=== PATIENT | female | born 1985 | race American Indian/Alaskan Native ===

== ENCOUNTER 2018-01-13 17:05 | Observation (INO) | payer MEDICAID ==
--- NOTE | 2018-01-13 18:43 | C.PDOC ---
History Of Present Illness 32 yr old female w/ hx of HTN p/w CP, vertigo and palpitations. Pt ntoes that she was seen by her PMD Dr. Wagner yesterday but her intermittent vertigo persists x3d. Vertigo began sunday, associated with palpitations and chest pain. No orthopnea, pnd or leg swelling. Chest pain is described more as a palpitation Non throbbing, without radiation. No radiation to the back. Pt notes she has been taking her meclizine at home given by PMD without much relief. No fever, chills or night sweats. No trauma or falls. Pt also notes mild PENNY, not worst of life or sudden in onset. No other complaints. Time Seen by Provider: 01/13/18 18:39 Chief Complaint (Nursing): Chest Pain Past Medical History Vital Signs: Last Vital Signs Temp 98.2 F 01/13/18 17:30 Pulse 90 01/13/18 17:30 Resp 18 01/13/18 17:30 BP 124/73 01/13/18 17:30 Pulse Ox 97 01/13/18 17:30 - Medical History PMH: HTN, Sleep Apnea Family History: States: Unknown Family Hx - Social History Hx Alcohol Use: No Hx Substance Use: No - Immunization History Hx Tetanus Toxoid Vaccination: Yes Hx Influenza Vaccination: Yes Hx Pneumococcal Vaccination: No Review Of Systems Constitutional: Negative for: Fever, Chills, Weakness, Malaise Eyes: Negative for: Pain, Eyelid Inflammation ENT: Negative for: Ear Pain, Ear Discharge, Nose Congestion, Mouth Pain Cardiovascular: Positive for: Chest Pain. Negative for: Palpitations, Orthopnea, Edema, Light Headedness Respiratory: Negative for: Cough, Shortness of Breath, SOB with Excertion, Pleuritic Pain, Wheezing Gastrointestinal: Negative for: Nausea, Vomiting, Abdominal Pain, Constipation, Melena, Hematochezia Genitourinary: Negative for: Dysuria, Hematuria, Pelvic Pain Musculoskeletal: Negative for: Neck Pain, Shoulder Pain, Arm Pain, Back Pain, Hand Pain Skin: Negative for: Rash, Lesions Neurological: Positive for: Headache (mild, not suddent onset. not worst of life ), Dizziness. Negative for: Weakness, Numbness, Confusion, Seizures Psych: Negative for: Anxiety, Depression Physical Exam - Physical Exam Appears: Well, Non-toxic, No Acute Distress Skin: Normal Color, Warm Head: Atraumatic, Normacephalic Eye(s): bilateral: Normal Inspection, PERRL, EOMI Nose: Normal Oral Mucosa: Moist Tongue: Normal Appearing Teeth: Normal Dentition Gingiva: Normal Appearing Neck: Normal, Normal ROM, No Midline Cervical Tenderness, Supple (no meningeal signs) Chest: Symmetrical Cardiovascular: Rhythm Regular Respiratory: Normal Breath Sounds, No Accessory Muscle Use, No Rales Gastrointestinal/Abdominal: Normal Exam, Soft, No Tenderness, No Mass, No Distention, No Guarding Back: Normal Inspection, No CVA Tenderness Neurological/Psych: Oriented x3, Normal Speech, Normal Cognition, Normal Cranial Nerves, No Cerebellar Signs, Normal Motor Gait: Steady Extremity: Right: No Drift, Left: No Drift, Upper: No Drift, Lower: No Drift ED Course And Treatment - Laboratory Results Result Diagrams: 01/13/18 18:51 01/13/18 19:08 O2 Sat by Pulse Oximetry: 97 Medical Decision Making Medical Decision Makin yr old female w/ hx of HTN p/w CP, vertigo and palpitations. Also mild PENNY, not worst of life, No FND, no meningeal signs. Vertigo is intermittent, BPPV like. EKG unremarkable: 76, NSR, no stemi Pending imaging and labs. 2040 labs unremarkable CTH unremarkable CXR unremarkable appreciate consult w/ Dr. Wagner: accepts to his service: tele obs for palpitations and vertigo pt in NAD and agreeable to plan Disposition - Disposition Disposition: HOSPITALIZED Disposition Time: 21:11 Condition: GOOD - Clinical Impression Clinical Impression: Palpitations, Near syncope
[2018-01-13] MEDS ORDERED: Sodium Chloride 0.9% 1,000 ML IV ONE (18:52)
[2018-01-13] MEDS ORDERED: Sodium Chloride 0.9% 1,000 ML ONE (19:00)
[2018-01-13 19:05] LABS: BASO % 0.3 % (0.0-2.0); EOS # 0.1 K/uL (0.0-0.7); EOS % 1.7 % (0.0-4.0); HEMOGLOBIN 10.4 g/dL (11.0-16.0); LYMPH # 2.6 K/uL (1.0-4.3); LYMPH % 30.7 % (20.0-40.0); MEAN CELL VOLUME 81.3 fL (81.0-99.0); MEAN CORPUSCULAR HEMOGLOBIN 25.7 pg (27.0-31.0); MEAN CORPUSCULAR HGB CONC 31.6 g/dL (33.0-37.0); MEAN PLATELET VOLUME 9.3 fL (7.2-11.7); MONO # 0.9 K/uL (0.0-0.8); MONO % 11.2 % (0.0-10.0); NEUT # 4.8 K/uL (1.8-7.0); NEUT % 56.1 % (50.0-75.0); NRBC % 0.2 % (0.0-2.0); RBC 4.03 Mil/uL (3.80-5.20); RED CELL DISTRIBUTION WIDTH 18.1 % (11.5-14.5); WHITE BLOOD COUNT 8.5 K/uL (4.8-10.8)
[2018-01-13 19:21] LABS: ALB/GLOB RATIO 1.2 (1.0-2.1); ALBUMIN 4.4 g/dL (3.5-5.0); ALT/SGPT 21 U/L (9-52); AST/SGOT 26 U/L (14-36); BLOOD UREA NITROGEN 14 mg/dL (7-17); CALCIUM 9.7 mg/dl (8.6-10.4); GFR NON-AFRICAN AMERICAN > 60
[2018-01-14 00:35] LABS: SQUAMOUS EPITHIAL 12 /hpf (0-5); URINE BACTERIA RARE (<OCC); URINE BILIRUBIN NEGATIVE (NEGATIVE); URINE BLOOD NEGATIVE (NEGATIVE); URINE CLARITY Hazy (Clear); URINE COLOR Yellow (YELLOW); URINE GLUCOSE (UA) NORMAL (Normal); URINE LEUKOCYTE ESTERASE NEG Leu/uL (Negative); URINE PROTEIN NEGATIVE (NEGATIVE); URINE UROBILINOGEN NORMAL mg/dL (0.2-1.0)
--- NOTE | 2018-01-14 07:21 | CP.PCM.CON ---
History of Present Illness - History of Present Illness History of Present Illness: consultation dictated chronic dizzyness BRAINSTEM MIGRAINE POSTURAL HYPOTENSION ? TERRIE - NON COMPLIANT MRI/CAROTID /EEG LOOSE WEIGHT ECOTRIN NEEDS REPEAT PSG TO CORRECT HER CPAP Past Patient History - Past Social History Smoking Status: Never Smoked - CARDIAC Hx Hypertension: Yes - PULMONARY Hx Sleep Apnea: Yes - PSYCHIATRIC Hx Substance Use: No - SURGICAL HISTORY Hx Surgeries: Yes Hx Dilation and Curettage: Yes - ANESTHESIA Hx Anesthesia: Yes Hx Anesthesia Reactions: No Hx Malignant Hyperthermia: No Meds Allergies/Adverse Reactions: Allergies Allergy/AdvReac Type Severity Reaction Status Date / Time shellfish derived Allergy Verified 01/13/18 17:35 - Medications Medications: Current Medications Aspirin (Ecotrin) 81 mg PO DAILY BERNABE Ferrous Sulfate (Feosol) 325 mg PO DAILY BERNABE Losartan Potassium (Cozaar) 25 mg PO DAILY BERNABE Multivitamins (Hexavitamin) 1 tab PO DAILY BERNABE Results - Vital Signs Recent Vital Signs: Last Vital Signs Temp 98.2 F 01/13/18 17:30 Pulse 77 01/14/18 04:04 Resp 18 01/13/18 17:30 BP 127/69 01/13/18 22:07 Pulse Ox 100 01/13/18 22:07 - Labs Result Diagrams: 01/13/18 18:51 01/13/18 19:08 Labs: Laboratory Results - last 24 hr 01/13/18 01/13/18 01/13/18 18:51 19:08 23:52 WBC 8.5 RBC 4.03 Hgb 10.4 L Hct 32.8 L MCV 81.3 MCH 25.7 L MCHC 31.6 L RDW 18.1 H Plt Count 313 MPV 9.3 Neut % (Auto) 56.1 Lymph % (Auto) 30.7 [place] % (Auto) 11.2 H Eos % (Auto) 1.7 Baso % (Auto) 0.3 Neut # (Auto) 4.8 Lymph # (Auto) 2.6 [place] # (Auto) 0.9 H Eos # (Auto) 0.1 Baso # (Auto) 0.0 Sodium 138 Potassium 3.8 Chloride 98 Carbon Dioxide 26 Anion Gap 18 BUN 14 Creatinine 0.8 Est GFR ( Amer) > 60 Est GFR (Non-Af Amer) > 60 Random Glucose 101 Calcium 9.7 Magnesium 1.8 Total Bilirubin 0.4 AST 26 ALT 21 Alkaline Phosphatase 58 Troponin I < 0.0120 Total Protein 8.0 Albumin 4.4 Globulin 3.6 Albumin/Globulin Ratio 1.2 TSH 3rd Generation 1.88 Urine Color Urine Clarity Urine pH Ur Specific [place] Urine Protein Urine Glucose (UA) Urine Ketones Urine Blood Urine Nitrate Urine Bilirubin Urine Urobilinogen Ur Leukocyte Esterase Urine WBC (Auto) Urine RBC (Auto) Ur Squamous Epith Cells Urine Bacteria Urine HCG, Qual 01/14/18 01/14/18 00:19 00:30 WBC RBC Hgb Hct MCV MCH MCHC RDW Plt Count MPV Neut % (Auto) Lymph % (Auto) [place] % (Auto) Eos % (Auto) Baso % (Auto) Neut # (Auto) Lymph # (Auto) [place] # (Auto) Eos # (Auto) Baso # (Auto) Sodium Potassium Chloride Carbon Dioxide Anion Gap BUN Creatinine Est GFR ( Amer) Est GFR (Non-Af Amer) Random Glucose Calcium Magnesium Total Bilirubin AST ALT Alkaline Phosphatase Troponin I Total Protein Albumin Globulin Albumin/Globulin Ratio TSH 3rd Generation Urine Color Yellow Urine Clarity Hazy Urine pH 5.0 Ur Specific [place] 1.028 Urine Protein Negative Urine Glucose (UA) Normal Urine Ketones Negative Urine Blood Negative Urine Nitrate Negative Urine Bilirubin Negative Urine Urobilinogen Normal Ur Leukocyte Esterase Neg Urine WBC (Auto) 3 Urine RBC (Auto) 1 Ur Squamous Epith Cells 12 H Urine Bacteria Rare Urine HCG, Qual Negative
--- NOTE | 2018-01-14 08:21 | CP.PCM.CON ---
<Saumya Prabhakar - Last Filed: 01/14/18 16:51> History of Present Illness - History of Present Illness History of Present Illness: Cardiology Consult Note This is a 32 year old female with past medical history of hypertension, impaired glucose tolerance, obesity, obstructive sleep apnea and asthma who was referred to our service by Dr. Wagner, for syncope. Patient reports she has had intermittent dizziness for the past several months, not associated with movement of her head, positional changes, or medications. Most recently, 3 days prior to admission, she experienced dizziness, associated with chest tightness/ pressure. She saw her PMD the following day and he instructed her to come to the ED. Patient reports she has experienced extreme fatigue and migraines for the past several months. She has not been compliant with her CPAP machine, due to the mask being broken. Her migraines are associated with photophobia, denied nausea, vomiting. She currently admits to dizziness and fatigue. ROS unremarkable, unless otherwise noted. PMHx: As noted above PSHx: bilateral oophorectomy 2/2 ectopic pregnancies Meds: Cozaar All: shellfish ; tolerates iodine (must be premedicated) SHx: Denied tobacco, alcohol, or illicit drug use FHx: Denied any heart disease, cardiac arrests, or sudden deaths Review of Systems - Constitutional Constitutional: absent: Chills, Fever - EENT Eyes: absent: Blurred Vision, Pain, Photophobia Ears: Disequilibrium, Dizziness Nose/Mouth/Throat: absent: Nasal Congestion, Nasal Discharge, Dysphagia - Cardiovascular Cardiovascular: Chest Pain, Lightheadedness. absent: Chest Pain at Rest, Chest Pain with Activity, Diaphoresis, Dyspnea, Edema, Leg Edema, Orthopnea - Respiratory Respiratory: absent: Cough, Dyspnea on Exertion, Chest Congestion - Gastrointestinal Gastrointestinal: absent: Abdominal Pain, Constipation, Diarrhea, Nausea, Vomiting - Genitourinary Genitourinary: absent: Change in Urinary Stream, Dysuria, Hematuria - Musculoskeletal Musculoskeletal: absent: Abnormal Gait, Arthralgias, Back Pain - Integumentary Integumentary: absent: Bleeding Lesions, Change in Hair, Dry Skin - Neurological Neurological: Disequilibrium, Dizziness. absent: Abnormal Gait, Abnormal Hearing, Confusion, Focal Weakness, Loss of Vision, Syncope, Vertigo, Weakness - Psychiatric Psychiatric: absent: Anxiety, Depression, Suicidal Ideation - Endocrine Endocrine: absent: Change in Body Appearance, Polydipsia, Polyphagia, Polyuria - Hematologic/Lymphatic Hematologic: absent: Easy Bleeding, Easy Bruising, Lymphadenopathy Past Patient History - Past Social History Smoking Status: Never Smoked - CARDIAC Hx Hypertension: Yes - PULMONARY Hx Sleep Apnea: Yes - PSYCHIATRIC Hx Substance Use: No - SURGICAL HISTORY Hx Surgeries: Yes Hx Dilation and Curettage: Yes - ANESTHESIA Hx Anesthesia: Yes Hx Anesthesia Reactions: No Hx Malignant Hyperthermia: No Meds Allergies/Adverse Reactions: Allergies Allergy/AdvReac Type Severity Reaction Status Date / Time shellfish derived Allergy Verified 01/13/18 17:35 - Medications Medications: Current Medications Aspirin (Ecotrin) 81 mg PO DAILY BERNABE Ferrous Sulfate (Feosol) 325 mg PO DAILY BERNABE Losartan Potassium (Cozaar) 25 mg PO DAILY BERNABE Multivitamins (Hexavitamin) 1 tab PO DAILY BERNABE Physical Exam - Constitutional Appears: No Acute Distress - Head Exam Head Exam: NORMAL INSPECTION, NORMOCEPHALIC - Eye Exam Eye Exam: Normal appearance, PERRL. absent: Nystagmus - ENT Exam ENT Exam: Mucous Membranes Moist - Respiratory Exam Respiratory Exam: Clear to Auscultation Bilateral, NORMAL BREATHING PATTERN - Cardiovascular Exam Cardiovascular Exam: +S1, +S2. absent: JVD - GI/Abdominal Exam GI & Abdominal Exam: Normal Bowel Sounds, Soft. absent: Distended, Tenderness - Extremities Exam Extremities exam: Positive for: normal inspection, pedal pulses present. Nega tive for: pedal edema, tenderness - Neurological Exam Neurological exam: Alert, CN II-XII Intact, Oriented x3, Reflexes Normal - Psychiatric Exam Psychiatric exam: Normal Affect, Normal Mood - Skin Skin Exam: Dry, Intact, Normal Color, Warm Results - Vital Signs Recent Vital Signs: Last Vital Signs Temp 98.2 F 01/13/18 17:30 Pulse 77 01/14/18 04:04 Resp 18 01/13/18 17:30 BP 127/69 01/13/18 22:07 Pulse Ox 100 01/13/18 22:07 - Labs Result Diagrams: 01/13/18 18:51 01/13/18 19:08 Labs: Laboratory Results - last 24 hr 01/13/18 01/13/18 01/13/18 18:51 19:08 23:52 WBC 8.5 RBC 4.03 Hgb 10.4 L Hct 32.8 L MCV 81.3 MCH 25.7 L MCHC 31.6 L RDW 18.1 H Plt Count 313 MPV 9.3 Neut % (Auto) 56.1 Lymph % (Auto) 30.7 [place] % (Auto) 11.2 H Eos % (Auto) 1.7 Baso % (Auto) 0.3 Neut # (Auto) 4.8 Lymph # (Auto) 2.6 [place] # (Auto) 0.9 H Eos # (Auto) 0.1 Baso # (Auto) 0.0 Sodium 138 Potassium 3.8 Chloride 98 Carbon Dioxide 26 Anion Gap 18 BUN 14 Creatinine 0.8 Est GFR ( Amer) > 60 Est GFR (Non-Af Amer) > 60 Random Glucose 101 Calcium 9.7 Magnesium 1.8 Total Bilirubin 0.4 AST 26 ALT 21 Alkaline Phosphatase 58 Troponin I < 0.0120 Total Protein 8.0 Albumin 4.4 Globulin 3.6 Albumin/Globulin Ratio 1.2 TSH 3rd Generation 1.88 Urine Color Urine Clarity Urine pH Ur Specific [place] Urine Protein Urine Glucose (UA) Urine Ketones Urine Blood Urine Nitrate Urine Bilirubin Urine Urobilinogen Ur Leukocyte Esterase Urine WBC (Auto) Urine RBC (Auto) Ur Squamous Epith Cells Urine Bacteria Urine HCG, Qual 01/14/18 01/14/18 00:19 00:30 WBC RBC Hgb Hct MCV MCH MCHC RDW Plt Count MPV Neut % (Auto) Lymph % (Auto) [place] % (Auto) Eos % (Auto) Baso % (Auto) Neut # (Auto) Lymph # (Auto) [place] # (Auto) Eos # (Auto) Baso # (Auto) Sodium Potassium Chloride Carbon Dioxide Anion Gap BUN Creatinine Est GFR ( Amer) Est GFR (Non-Af Amer) Random Glucose Calcium Magnesium Total Bilirubin AST ALT Alkaline Phosphatase Troponin I Total Protein Albumin Globulin Albumin/Globulin Ratio TSH 3rd Generation Urine Color Yellow Urine Clarity Hazy Urine pH 5.0 Ur Specific [place] 1.028 Urine Protein Negative Urine Glucose (UA) Normal Urine Ketones Negative Urine Blood Negative Urine Nitrate Negative Urine Bilirubin Negative Urine Urobilinogen Normal Ur Leukocyte Esterase Neg Urine WBC (Auto) 3 Urine RBC (Auto) 1 Ur Squamous Epith Cells 12 H Urine Bacteria Rare Urine HCG, Qual Negative Assessment & Plan - Assessment and Plan (Free Text) Plan: Dizziness, pre- syncopal episode Chest Pain r/o ACS Imaging: - EKG: NSR @ 78 - ECHO: LVEF 55-60% - Carotid Dopplers: no stenosis bilaterally - Head CT: poor study due to patient's weave - Brain MRI: suspicious for idiopathic intracranial hypertension Management: - Labs within normal limits - Orthostatic vitals ordered Case discussed with Saumya Livingston DO, PGY2 <Filemon Weaver - Last Filed: 01/14/18 21:53> Meds - Medications Medications: Current Medications Acetazolamide (Diamox Sequels 500 Mg Sr Cap) 500 mg PO BID PENDING SALE TO [facility] Aspirin (Ecotrin) 81 mg PO DAILY [facility]END[facility] TO [facility] Last Admin: 01/14/18 11:59 Dose: Not Given Ferrous Sulfate (Feosol) 325 mg PO DAILY [facility] TO [facility] Last Admin: 01/14/18 11:09 Dose: 325 mg Losartan Potassium (Cozaar) 25 mg PO DAILY [facility]END[facility] TO [facility] Last Admin: 01/14/18 11:59 Dose: Not Given Multivitamins (Hexavitamin) 1 tab PO DAILY PENDING [facility] TO [facility] Last Admin: 01/14/18 11:10 Dose: 1 tab Results - Vital Signs Recent Vital Signs: Last Vital Signs Temp 98.1 F 01/14/18 15:30 Pulse 89 01/14/18 17:01 Resp 20 01/14/18 15:30 BP 117/72 01/14/18 15:30 Pulse Ox 97 01/14/18 17:14 - Labs Result Diagrams: 01/13/18 18:51 01/13/18 19:08 Labs: Laboratory Results - last 24 hr 01/13/18 01/14/18 01/14/18 23:52 00:19 00:30 ESR Hemoglobin A1c Total Creatine Kinase CK-MB (Mass) Troponin I Triglycerides Cholesterol LDL Cholesterol Direct HDL Cholesterol Vitamin B12 Folate Homocysteine Free T4 TSH 3rd Generation 1.88 Urine Color Yellow Urine Clarity Hazy Urine pH 5.0 Ur Specific [place] 1.028 Urine Protein Negative Urine Glucose (UA) Normal Urine Ketones Negative Urine Blood Negative Urine Nitrate Negative Urine Bilirubin Negative Urine Urobilinogen Normal Ur Leukocyte Esterase Neg Urine WBC (Auto) 3 Urine RBC (Auto) 1 Ur Squamous Epith Cells 12 H Urine Bacteria Rare Urine HCG, Qual Negative 01/14/18 01/14/18 01/14/18 08:50 14:08 14:08 ESR 26 H Hemoglobin A1c Total Creatine Kinase 117 111 CK-MB (Mass) 0.67 0.55 Troponin I < 0.0120 < 0.0120 Triglycerides 153 H Cholesterol 163 LDL Cholesterol Direct 90 HDL Cholesterol 42 Vitamin B12 700 Folate 14.5 Homocysteine 5.4 Free T4 TSH 3rd Generation Urine Color Urine Clarity Urine pH Ur Specific [place] Urine Protein Urine Glucose (UA) Urine Ketones Urine Blood Urine Nitrate Urine Bilirubin Urine Urobilinogen Ur Leukocyte Esterase Urine WBC (Auto) Urine RBC (Auto) Ur Squamous Epith Cells Urine Bacteria Urine HCG, Qual 01/14/18 01/14/18 14:08 14:08 ESR Hemoglobin A1c 5.8 Total Creatine Kinase CK-MB (Mass) Troponin I Triglycerides Cholesterol LDL Cholesterol Direct HDL Cholesterol Vitamin B12 Folate Homocysteine Free T4 0.99 TSH 3rd Generation 1.98 Urine Color Urine Clarity Urine pH Ur Specific [place] Urine Protein Urine Glucose (UA) Urine Ketones Urine Blood Urine Nitrate Urine Bilirubin Urine Urobilinogen Ur Leukocyte Esterase Urine WBC (Auto) Urine RBC (Auto) Ur Squamous Epith Cells Urine Bacteria Urine HCG, Qual Assessment & Plan - Assessment and Plan (Free Text) Plan: Patient seen and evaluated personally by md Plan of care d/w the resident and as documented
--- NOTE | 2018-01-14 08:32 | CT ---
Date of service: 01/13/2018 PROCEDURE: CT HEAD WITHOUT CONTRAST. HISTORY: vertigo COMPARISON: None available. TECHNIQUE: Axial computed tomography images were obtained through the head/brain without intravenous contrast. Radiation dose: Total exam DLP = 1222.62 mGy-cm. This CT exam was performed using one or more of the following dose reduction techniques: Automated exposure control, adjustment of the mA and/or kV according to patient size, and/or use of iterative reconstruction technique. FINDINGS: HEMORRHAGE: No intracranial hemorrhage. At the lateral aspect of the temporal lobes bilaterally there are linear areas of low attenuation at the level of the extra-axial spaces as demonstrated on series 4 images 18 through 23. This likely is related to streak artifact however as the patient was unable to remove her wig, repeat study with the wig removed is recommended if clinically indicated to exclude additional etiology. BRAIN: No mass effect or edema. No atrophy or chronic microvascular ischemic changes. VENTRICLES: Unremarkable. No hydrocephalus. CALVARIUM: Unremarkable. PARANASAL SINUSES: Suggestion of a chronic deformity of the medial wall of the right orbit with encroachment into the right ethmoid air cells. Clinical correlation. MASTOID AIR CELLS: Unremarkable as visualized. No inflammatory changes. OTHER FINDINGS: Limited study as the patient was unable to remove her wig. IMPRESSION: Limited study as the patient was unable to remove her wig. At the lateral aspect of the temporal lobes bilaterally there are linear areas of low attenuation at the level of the extra-axial spaces as demonstrated on series 4 images 18 through 23. This likely is related to streak artifact however as the patient was unable to remove her wig, repeat study with the wig removed is recommended if clinically indicated to exclude additional etiology. Suggestion of a chronic deformity of the medial wall of the right orbit with encroachment into the right ethmoid air cells. Clinical correlation. If headache persists, consider correlation with MRI. A preliminary report was generated at 8:47 p.m. on 01/13/[address] Filemon Handy from [facility].
[2018-01-14 08:48] VITALS: RESP 20
--- NOTE | 2018-01-14 09:14 | RAD ---
Chest x-ray two views History: Chest pain. Comparison: None available. Findings: Mild venous congestion. Heart size within normal limits. Impression: Mild venous congestion.
[2018-01-14 09:24] LABS: HDL CHOLESTEROL 42 mg/dL (30-70)
[2018-01-14 09:33] LABS: CK-MB 0.67 ng/mL (0.0-3.38)
[2018-01-14 09:35] LABS: LDL CHOLESTEROL 90 mg/dL (0-129)
[2018-01-14 10:27] LABS: FOLATE 14.5 ng/mL
[2018-01-14] MEDS: Multiple Vitamins Tab PO SCH (11:10)
--- NOTE | 2018-01-14 11:35 | CON ---
DATE: 01/14/2018 TIME OF EVALUATION: 07:15 a.m. NEUROLOGICAL PROBLEM: New syncopal attack. CHIEF COMPLAINT The patient was brought into [facility] (Formerly [facility]) as per the advice from her PMD because of her new syncopal attack at home. HISTORY OF PRESENT ILLNESS: Ms. Alan Acevedo is an 82-year-old moderately obese right-handed female presenting with a year and half since dizziness. This dizziness has been getting worse for the last two days associating with whenever she is retching and standing up trying to hold the objects and blurry vision associating with nausea and losing balance. These episodes are all associating with headache during this episode. No warning sign. No history of syncopal attack. No similar episodes happened prior to this event. She has been treated symptomatically. However, it has not been working. She has been diagnosed with sleep apnea four years ago, been not using CPAP. However, she admits that she feels good while she was using the unit. PAST MEDICAL HISTORY: Hypertension, sleep apnea. ALLERGIES: NO KNOWN ALLERGIES. PERSONAL HISTORY: Denies smoking or alcohol use. REVIEW OF SYSTEMS: A 12-point system being reviewed. From neuro, new syncopal attack. MEDICATIONS: Iron, extra vitamin and losartan. PHYSICAL EXAMINATION: VITAL SIGNS: Blood pressure 127/69, mean artery pressure of 88, respiratory rate 18, temperature 98.2 degrees Fahrenheit, pulse rate 77 and regular. NECK: Supple. No carotid bruits. HEART: Sounds regular. CHEST: Fair air entry. EXTREMITIES: No edema in legs. NEUROLOGIC EXAMINATION: Mental status examination, she is awake, alert, and one to person, place and time. Speech is clear. Naming, repetition, fluency, comprehension all within normal. Cranial nerve examination, visual field intact. Pupils reactive to light. Extraocular movement normal. No primary gaze nystagmus. No facial sensory deficit. No facial asymmetry. Hearing is normal. Tongue is midline. Good gag. Motor examination, outstretched hand with eyes closed, no drift noted. Power is symmetric on either side. Deep tendon reflexes biceps, brachialis, triceps 1+, both knees are 2+. Both ankles are absent. Plantars are downgoing. Sensory examination. No cortical sensory loss. Coordination: [id number] test is intact. Gait is deferred at this time. CONCLUSION: 1. Ms. Alan Acevedo had been presenting with possible brainstem migraine versus reversible cerebrovascular or constrictive disease syndrome. 2. The patient also presenting with noncompliant using of continuous positive airway pressure for her obstructive sleep apnea. 3. New syncopal attack, rule out seizures from neurological point of view. 4. 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 5. Possible seizures. 6. The patient maybe hypoperfusion syndrome. Workup CT of the head reviewed, no acute pathology is noted. Blood workup, WBC 8.5, hemoglobin 10.4 with hematocrit 32.8, platelet 313. Sodium 138, potassium 3.8, chloride 98, bicarbonate 26, BUN 14, creatinine 0.8, GFR more than 60. Urinalysis normal. RECOMMENDATIONS: 1. MRI of the brain to rule out any structural cause. 2. Carotid Doppler. 3. Electroencephalogram to rule out any paroxysmal activities. 4. The patient should be having split studies for her polysomnogram in order to get her correct measurement for her CPAP for her use. The patient condition has been discussed. The patient also advised to lose weight. The patient will be followed while she is in the hospital. Edson Nguyen MD
--- NOTE | 2018-01-14 12:09 | CARD ---
APPROVED REPORT Date of service: 01/13/2018 EKG Measurement Heart [id number] <Conclusion> Poor data quality, interpretation may be adversely affected Normal sinus rhythm rsr in v1 Abnormal ECG
--- NOTE | 2018-01-14 12:58 | CARD ---
APPROVED REPORT Date of service: 01/14/2018 EXAM: Two-dimensional and M-mode echocardiogram with Doppler and color Doppler. INDICATION Dizziness and Vertigo Syncope Palpitations RISK FACTORS Hypertension Smoking 2D DIMENSIONS IVSd1.1 (0.7-1.1cm)LVDd5.0 (3.9-5.9cm) PWd1.1 (0.7-1.1cm)LA [id number] (18-58mL) LVDs2.9 (2.5-4.0cm)FS (%) 41.7 % LVEF (%)72.4 (>50%)LVEF (Elliott's)60 % M-Mode DIMENSIONS Left Atrium (MM)3.52 (2.5-4.0cm)IVSd1.20 (0.7-1.1cm) Aortic Root2.98 (2.2-3.7cm)LVDd4.96 (4.0-5.6cm) Aortic Cusp Exc.2.20 (1.5-2.0cm)PWd0.98 (0.7-1.1cm) FS (%) 35 %LVDs3.20 (2.0-3.8cm) LVEF (%)65 (>50%) Mitral Valve MV E Htemwhtd84.3cm/sMV A Htobxgyn77.3cm/sE/A ratio1.3 TDI Lateral E' Peak V12.80cm/sMedial E' Peak V8.42cm/sE/Lateral E'5.1 E/Medial E'7.8 Tricuspid Valve TR Peak [id number]/sTR Peak Gr.[id number] <Conclusion> normal size la,lv & ra rv. normal lv wall motion,thickness,systolic & distolic function with lvef of 55-60%. normal aortic,mitral,tv & pv. mild mr,tr & pi with normal pulmonary systolic pressures of 23 mm of hg. no periardial effusion. normal size aortic root & ivc.
--- NOTE | 2018-01-14 13:39 | VASCLAB ---
Date of service: 01/14/2018 PROCEDURE: Carotid Duplex Exam. HISTORY: Dizziness COMPARISON: None available. TECHNIQUE: Grayscale and duplex Doppler evaluation of the cervical carotid and vertebral arteries were performed. The common carotid, carotid bifurcations and cervical Internal Carotid Artery (ICA) and proximal External Carotid Artery (ECA) were evaluated. The vertebral arteries were evaluated for gross patency and flow direction. Report prepared by Jim Gregory, BS, RVT FINDINGS: RIGHT CAROTID ARTERIES: 1. Common Carotid Artery: No significant focal plaque formation of the right common carotid artery. Maximum Peak Systolic velocity: 103 cm/sec: End-diastolic velocity 39 cm/sec. 2. Carotid Bifurcation: plaque formation. Maximum Peak Systolic velocity: 71 cm/sec: End-diastolic velocity 26 cm/sec. 3. Internal Carotid Artery: Plaque description: 3.1. Proximal Segment: Peak systolic velocity 99 cm/sec: End-diastolic velocity 39 cm/sec - % stenosis 0-15% 3.2. Middle Segment: Peak systolic velocity 133 cm/sec: End-diastolic velocity 55 cm/sec - % stenosis 0-15% 3.3. Distal Segment: Peak systolic velocity 79 cm/sec: End-diastolic velocity 36 cm/sec - % stenosis 0-15% 4. External Carotid Artery: No significant focal plaque formation. Peak systolic velocity 120 cm/sec 5. ICA/CCA Ratio: 1.5 LEFT CAROTID ARTERIES: 1. Common Carotid Artery: No significant focal plaque formation of the left common carotid artery. Maximum Peak Systolic velocity: 114 cm/sec: End-diastolic velocity 37 cm/sec. 2. Carotid Bifurcation: plaque formation. Maximum Peak Systolic velocity: 82 cm/sec: End-diastolic velocity 27 cm/sec. 3. Internal Carotid Artery: Plaque description: 3.1. Proximal Segment: Peak systolic velocity 84 cm/sec: End-diastolic velocity 36 cm/sec - % stenosis 0-15% 3.2. Middle Segment: Peak systolic velocity 133 cm/sec: End-diastolic velocity 54 cm/sec - % stenosis 0-15% 3.3. Distal Segment: Peak systolic velocity 103 cm/sec: End-diastolic velocity 46 cm/sec - % stenosis 0-15% 4. External Carotid Artery: No significant focal plaque formation. Peak systolic velocity 85 cm/sec 5. ICA/CCA Ratio: 1.3 VERTEBRAL ARTERIES: 1. Right Vertebral Artery: The right vertebral artery flow direction is antegrade. 2. Left Vertebral Artery: The left vertebral artery flow direction is antegrade. OTHER FINDINGS: 1. Right Brachial Blood pressure: 150 mmHg. 2. Left Brachial Blood pressure: 132 mmHg. IMPRESSION: RIGHT: Duplex scan does not suggest hemodynamically significant stenosis of the right extracranial carotid arteries. LEFT: Duplex scan does not suggest hemodynamically significant stenosis of the left extracranial carotid arteries.
[2018-01-14] MEDS ORDERED: Influenza Vaccine 60 MCG/0.5 ML SYR (3 yr & up) IM ONE (14:00)
[2018-01-14] MEDS ORDERED: Pneumococcal 23-Valent Vaccine IM ONE (14:00)
[2018-01-14 14:42] LABS: CK-MB 0.55 ng/mL (0.0-3.38)
[2018-01-14 15:20] LABS: FREE T4 0.99 ng/dL (0.78-2.19)
--- NOTE | 2018-01-14 16:04 | MRI ---
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 TECHNIQUE: Multiplanar, multisequence MR images of the brain were obtained without intravenous contrast enhancement. FINDINGS: HEMORRHAGE: None DWI: No evidence of an acute or early subacute infarction. BRAIN PARENCHYMA: Garsia-white matter differentiation is preserved. There is no mass, mass effect or abnormal extra-axial fluid collection. There is no territorial infarction. There is an empty sella, otherwise midline sagittal structures are normal. VENTRICLES: The ventricles are slit-like. No hydrocephalus. The Meckel's caves are enlarged bilaterally. CRANIUM: Unremarkable. ORBITS: The globes are symmetric. There is symmetric flattening of posterior sclera concerning for papilledema. There is enlargement of subarachnoid spaces around the optic nerves bilaterally and vertical tortuosity of the optic nerves. PARANASAL SINUSES/MASTOIDS: Clear VASCULAR SYSTEM: Skull base flow voids intact. OTHER FINDINGS: There is increased subcutaneous fat in the scalp and neck. IMPRESSION: The constellation of findings in this demographic is suspicious for idiopathic intracranial hypertension. Clinical follow-up is advised.
--- NOTE | 2018-01-14 17:45 | CP.PCM.CON ---
History of Present Illness - History of Present Illness History of Present Illness: reason for consultation: obstructive sleep apnea 32-year-old female with history of obstructive sleep apnea/noncompliant with CPAP, asthma, hypertension was admitted for syncope/dizziness. Patient states that she had sleep study d many years ago and is noncompliant using CPAP at night PSHx: bilateral oophorectomy 2/2 ectopic pregnancies Meds: Cozaar All: shellfish ; tolerates iodine (must be premedicated) SHx: Denied tobacco, alcohol, or illicit drug use FHx: Denied any heart disease, cardiac arrests, or sudden deaths Review of Systems - Review of Systems All systems: reviewed and no additional remarkable complaints except (nocturnal snoring and dizziness) Past Patient History - Past Social History Smoking Status: Never Smoked - CARDIAC Hx Hypertension: Yes - PULMONARY Hx Sleep Apnea: Yes - PSYCHIATRIC Hx Substance Use: No - SURGICAL HISTORY Hx Surgeries: Yes Hx Dilation and Curettage: Yes - ANESTHESIA Hx Anesthesia: Yes Hx Anesthesia Reactions: No Hx Malignant Hyperthermia: No Meds Allergies/Adverse Reactions: Allergies Allergy/AdvReac Type Severity Reaction Status Date / Time shellfish derived Allergy Verified 01/13/18 17:35 - Medications Medications: Current Medications Aspirin (Ecotrin) 81 mg PO DAILY [facility] Last Admin: 01/14/18 11:59 Dose: Not Given Ferrous Sulfate (Feosol) 325 mg PO DAILY [facility] Last Admin: 01/14/18 11:09 Dose: 325 mg Losartan Potassium (Cozaar) 25 mg PO DAILY [facility] Last Admin: 01/14/18 11:59 Dose: Not Given Multivitamins (Hexavitamin) 1 tab PO DAILY [facility] Last Admin: 01/14/18 11:10 Dose: 1 tab Physical Exam - Head Exam Head Exam: ATRAUMATIC, NORMOCEPHALIC - Eye Exam Eye Exam: Normal appearance - ENT Exam ENT Exam: Mucous Membranes Moist Results - Vital Signs Recent Vital Signs: Last Vital Signs Temp 98.1 F 01/14/18 15:30 Pulse 89 01/14/18 17:01 Resp 20 01/14/18 15:30 BP 117/72 01/14/18 15:30 Pulse Ox 97 01/14/18 17:14 - Labs Result Diagrams: 01/13/18 18:51 01/13/18 19:08 Labs: Laboratory Results - last 24 hr 01/13/18 01/13/1801/13/18 18:51 19:08 23:52 WBC 8.5 RBC 4.03 Hgb 10.4 L Hct 32.8 L MCV 81.3 MCH 25.7 L MCHC 31.6 L RDW 18.1 H Plt Count 313 MPV 9.3 Neut % (Auto) 56.1 Lymph % (Auto) 30.7 Crosby % (Auto) 11.2 H Eos % (Auto) 1.7 Baso % (Auto) 0.3 Neut # (Auto) 4.8 Lymph # (Auto) 2.6 Crosby # (Auto) 0.9 H Eos # (Auto) 0.1 Baso # (Auto) 0.0 ESR Sodium 138 Potassium 3.8 Chloride 98 Carbon Dioxide 26 Anion Gap 18 BUN 14 Creatinine 0.8 Est GFR ( Amer) > 60 Est GFR (Non-Af Amer) > 60 Random Glucose 101 Hemoglobin A1c Calcium 9.7 Magnesium 1.8 Total Bilirubin 0.4 AST 26 ALT 21 Alkaline Phosphatase 58 Total Creatine Kinase CK-MB (Mass) Troponin I < 0.0120 Total Protein 8.0 Albumin 4.4 Globulin 3.6 Albumin/Globulin Ratio 1.2 Triglycerides Cholesterol LDL Cholesterol Direct HDL Cholesterol Vitamin B12 Folate Homocysteine Free T4 TSH 3rd Generation 1.88 Urine Color Urine Clarity Urine pH Ur Specific [place] Urine Protein Urine Glucose (UA) Urine Ketones Urine Blood Urine Nitrate Urine Bilirubin Urine Urobilinogen Ur Leukocyte Esterase Urine WBC (Auto) Urine RBC (Auto) Ur Squamous Epith Cells Urine Bacteria Urine HCG, Qual 01/14/18 01/14/18 01/14/18 00:19 00:30 08:50 WBC RBC Hgb Hct MCV MCH MCHC RDW Plt Count MPV Neut % (Auto) Lymph % (Auto) Crosby % (Auto) Eos % (Auto) Baso % (Auto) Neut # (Auto) Lymph # (Auto) Cros[place] # (Auto) Eos # (Auto) Baso # (Auto) ESR Sodium Potassium Chloride Carbon Dioxide Anion Gap BUN Creatinine Est GFR ( Amer) Est GFR (Non-Af Amer) Random Glucose Hemoglobin A1c Calcium Magnesium Total Bilirubin AST ALT Alkaline Phosphatase Total Creatine Kinase 117 CK-MB (Mass) 0.67 Troponin I < 0.0120 Total Protein Albumin Globulin Albumin/Globulin Ratio Triglycerides 153 H Cholesterol 163 LDL Cholesterol Direct 90 HDL Cholesterol 42 Vitamin B12 700 Folate 14.5 Homocysteine 5.4 Free T4 TSH 3rd Generation Urine Color Yellow Urine Clarity Hazy Urine pH 5.0 Ur Specific [place] 1.028 Urine Protein Negative Urine Glucose (UA) Normal Urine Ketones Negative Urine Blood Negative Urine Nitrate Negative Urine Bilirubin Negative Urine Urobilinogen Normal Ur Leukocyte Esterase Neg Urine WBC (Auto) 3 Urine RBC (Auto) 1 Ur Squamous Epith Cells 12 H Urine Bacteria Rare Urine HCG, Qual Negative 01/14/18 01/14/18 01/14/18 14:08 14:08 14:08 WBC RBC Hgb Hct MCV MCH MCHC RDW Plt Count MPV Neut % (Auto) Lymph % (Auto) Cros[place] % (Auto) Eos % (Auto) Baso % (Auto) Neut # (Auto) Lymph # (Auto) [place] # (Auto) Eos # (Auto) Baso # (Auto) ESR 26 H Sodium Potassium Chloride Carbon Dioxide Anion Gap BUN Creatinine Est GFR ( Amer) Est GFR (Non-Af Amer) Random Glucose Hemoglobin A1c 5.8 Calcium Magnesium Total Bilirubin AST ALT Alkaline Phosphatase Total Creatine Kinase 111 CK-MB (Mass) 0.55 Troponin I < 0.0120 Total Protein Albumin Globulin Albumin/Globulin Ratio Triglycerides Cholesterol LDL Cholesterol Direct HDL Cholesterol Vitamin B12 Folate Homocysteine Free T4 TSH 3rd Generation Urine Color Urine Clarity Urine pH Ur Specific [place] Urine Protein Urine Glucose (UA) Urine Ketones Urine Blood Urine Nitrate Urine Bilirubin Urine Urobilinogen Ur Leukocyte Esterase Urine WBC (Auto) Urine RBC (Auto) Ur Squamous Epith Cells Urine Bacteria Urine HCG, Qual 01/14/18 14:08 WBC RBC Hgb Hct MCV MCH MCHC RDW Plt Count MPV Neut % (Auto) Lymph % (Auto) Cros[place] % (Auto) Eos % (Auto) Baso % (Auto) Neut # (Auto) Lymph # (Auto) [place] # (Auto) Eos # (Auto) Baso # (Auto) ESR Sodium Potassium Chloride Carbon Dioxide Anion Gap BUN Creatinine Est GFR ( Amer) Est GFR (Non-Af Amer) Random Glucose Hemoglobin A1c Calcium Magnesium Total Bilirubin AST ALT Alkaline Phosphatase Total Creatine Kinase CK-MB (Mass) Troponin I Total Protein Albumin Globulin Albumin/Globulin Ratio Triglycerides Cholesterol LDL Cholesterol Direct HDL Cholesterol Vitamin B12 Folate Homocysteine Free T4 0.99 TSH 3rd Generation 1.98 Urine Color Urine Clarity Urine pH Ur Specific [place] Urine Protein Urine Glucose (UA) Urine Ketones Urine Blood Urine Nitrate Urine Bilirubin Urine Urobilinogen Ur Leukocyte Esterase Urine WBC (Auto) Urine RBC (Auto) Ur Squamous Epith Cells Urine Bacteria Urine HCG, Qual Assessment & Plan (1) TERRIE (obstructive sleep apnea) Status: Acute Comment: sleep study from [facility]. CPAP at night
--- NOTE | 2018-01-14 22:15 | CP.PCM.HP ---
Past Patient History - Past Social History Smoking Status: Never Smoked - CARDIAC Hx Hypertension: Yes - PULMONARY Hx Sleep Apnea: Yes - PSYCHIATRIC Hx Substance Use: No - SURGICAL HISTORY Hx Surgeries: Yes Hx Dilation and Curettage: Yes - ANESTHESIA Hx Anesthesia: Yes Hx Anesthesia Reactions: No Hx Malignant Hyperthermia: No Meds Allergies/Adverse Reactions: Allergies Allergy/AdvReac Type Severity Reaction Status Date / Time shellfish derived Allergy Verified 01/13/18 17:35 Results - Vital Signs Recent Vital Signs: Last Vital Signs Temp 98.1 F 01/14/18 15:30 Pulse 89 01/14/18 17:01 Resp 20 01/14/18 15:30 BP 117/72 01/14/18 15:30 Pulse Ox 97 01/14/18 17:14 - Labs Result Diagrams: 01/13/18 18:51 01/13/18 19:08 Labs: Laboratory Results - last 24 hr 01/13/18 01/14/18 01/14/18 23:52 00:19 00:30 ESR Hemoglobin A1c Total Creatine Kinase CK-MB (Mass) Troponin I Triglycerides Cholesterol LDL Cholesterol Direct HDL Cholesterol Vitamin B12 Folate Homocysteine Free T4 TSH 3rd Generation 1.88 Urine Color Yellow Urine Clarity Hazy Urine pH 5.0 Ur Specific [place] 1.028 Urine Protein Negative Urine Glucose (UA) Normal Urine Ketones Negative Urine Blood Negative Urine Nitrate Negative Urine Bilirubin Negative Urine Urobilinogen Normal Ur Leukocyte Esterase Neg Urine WBC (Auto) 3 Urine RBC (Auto) 1 Ur Squamous Epith Cells 12 H Urine Bacteria Rare Urine HCG, Qual Negative 01/14/18 01/14/18 01/14/18 08:50 14:08 14:08 ESR 26 H Hemoglobin A1c Total Creatine Kinase 117 111 CK-MB (Mass) 0.67 0.55 Troponin I < 0.0120 < 0.0120 Triglycerides 153 H Cholesterol 163 LDL Cholesterol Direct 90 HDL Cholesterol 42 Vitamin B12 700 Folate 14.5 Homocysteine 5.4 Free T4 TSH 3rd Generation Urine Color Urine Clarity Urine pH Ur Specific [place] Urine Protein Urine Glucose (UA) Urine Ketones Urine Blood Urine Nitrate Urine Bilirubin Urine Urobilinogen Ur Leukocyte Esterase Urine WBC (Auto) Urine RBC (Auto) Ur Squamous Epith Cells Urine Bacteria Urine HCG, Qual 01/14/18 01/14/18 14:08 14:08 ESR Hemoglobin A1c 5.8 Total Creatine Kinase CK-MB (Mass) Troponin I Triglycerides Cholesterol LDL Cholesterol Direct HDL Cholesterol Vitamin B12 Folate Homocysteine Free T4 0.99 TSH 3rd Generation 1.98 Urine Color Urine Clarity Urine pH Ur Specific [place] Urine Protein Urine Glucose (UA) Urine Ketones Urine Blood Urine Nitrate Urine Bilirubin Urine Urobilinogen Ur Leukocyte Esterase Urine WBC (Auto) Urine RBC (Auto) Ur Squamous Epith Cells Urine Bacteria Urine HCG, Qual
--- NOTE | 2018-01-15 03:39 | HP ---
CHIEF COMPLAINT: Dizziness, chest pain, palpitations x few weeks. HISTORY OF PRESENT ILLNESS: This is a 32-year-old female well known to me with history of obstructive sleep apnea, hypertension, type 2 diabetes, hyperlipidemia who is compliant with diet, medication and followup. She has been using in her usual state of health. She is ambulatory and independent in activities of daily living. For the last several weeks, she has been having headache, dizziness, vertigo, blurring of vision, chest pain, palpitation. She denies any history of polyuria or polydipsia. She denies any history of hematuria or pyuria. She denies any sneezing, itchy eyes, or itchy nose. There is no history of cough or sore throat. There is no history of chest pain on exertion. There is no history of orthopnea or PND. There is no history of sneezing, itchy eyes, or itchy nose. She denies any history of heart murmur. PAST MEDICAL HISTORY: Sleep apnea, diabetes, hypertension, hyperlipidemia. SOCIAL HISTORY: Nonsmoker. Non-EtOH abuser. CURRENT MEDICATIONS: At home, she is multivitamin, Cozaar, ferrous sulfate. PHYSICAL EXAMINATION: GENERAL: Young female, in no acute distress. VITAL SIGNS: Blood pressure 117/72, pulse 78, respiratory rate 20, temperature 98.1. SKIN: No rash. No bruising. No purpura. HEENT: Atraumatic and normocephalic. Negative pallor. Negative jaundice. Extraocular movements are intact. NECK: Supple. No JVD. No lymph nodes. No thyromegaly. CHEST WALL: Bilateral symmetrical expansion. LUNGS: Clear. No rales. No rhonchi. CARDIOVASCULAR SYSTEM: PMI not localized. S1 and S2 are regular. No heave. No thrill. ABDOMEN: Soft. Nontender. Bowel sounds are positive. RECTAL: No masses. No bleed. EXTREMITIES: No clubbing, cyanosis, or edema. CENTRAL NERVOUS SYSTEM: Awake, alert and oriented x3. Cranial nerves II through XII are normal. Power 5/5 x4. Plantars are downgoing. ASSESSMENT: 1. Pseudotumor cerebri needs to be ruled out. 2. Hypertension. 3. Obesity. 4. Sleep apnea. PLAN: Admit. Neurology evaluation. Cardiology evaluation. The patient will need LP . Miko Wagner MD
[2018-01-15 08:38] VITALS: BP 113/74; TEMP 98.1; O2SAT 95
[2018-01-15] MEDS: Multiple Vitamins Tab PO SCH (09:41)
[2018-01-15] MEDS ORDERED: acetaZOLAMIDE 500 mg SR Cap PO SCH (10:00)
[2018-01-15 12:12] VITALS: PULSE 70
--- NOTE | 2018-01-15 12:52 | CP.PCM.PN ---
Subjective - Date & Time of Evaluation Date of Evaluation: 01/15/18 Time of Evaluation: 12:52 - Subjective Subjective: PATIENT SEEN AND EXAMINED AT THE BEDSIDE Objective - Vital Signs/Intake and Output Vital Signs (last 24 hours): Temp Pulse Resp BP Pulse Ox 98.1 F 70 20 113/74 95 01/15/18 07:00 01/15/18 08:00 01/15/18 07:00 01/15/18 07:00 01/15/18 12:00 - Medications Medications: Current Medications Acetazolamide (Diamox Sequels 500 Mg Sr Cap) 500 mg PO BID [facility] Last Admin: 01/15/18 09:47 Dose: 500 mg Aspirin (Ecotrin) 81 mg PO DAILY [facility] Last Admin: 01/15/18 09:41 Dose: 81 mg Ferrous Sulfate (Feosol) 325 mg PO DAILY [facility] Last Admin: 01/15/18 09:41 Dose: 325 mg Losartan Potassium (Cozaar) 25 mg PO DAILY [facility] Last Admin: 01/15/18 10:37 Dose: Not Given Multivitamins (Hexavitamin) 1 tab PO DAILY [facility] Last Admin: 01/15/18 09:41 Dose: 1 tab - Labs Labs: 01/13/18 18:51 01/13/18 19:08 Assessment and Plan - Assessment and Plan (Free Text) Assessment: FOLLOW UP WITH DR BUENO IN HIS OFFICE NEXT WEEK -----CALL FOR APPOINTMENT FOLLOW UP WITH DR GABRIEL IN HIS OFFICE NEXT WEEK ----CALL FOR APPOINTMENT CONTINUE HOME MEDICATION NEW PRESCRIPTION GIVEN ASPIRIN 81 MG BY MOUTH DAILY DIAMOX SEROQUEL 500 MG BY MOUTH TWICE A DAY PER DR GABRIEL ACTIVITY TOLERATED CALL DR BUENO OR GO TO THE EMERGENCY ROOM IF SYMPTOM RETURN OR WORSENING
--- NOTE | 2018-01-16 08:10 | PN ---
DATE: 01/15/2018 TIME OF EVALUATION: 07:15 a.m. 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 PHYSICAL EXAMINATION VITAL SIGNS: Blood pressure 113/69, mean arterial pressure of 83, respiratory rate 18, temperature 98 degrees Fahrenheit with a pulse rate of 75. The patient denies any new complaint, still having dizziness. No visual disturbances. The current examination does not change the previous examination. Electroencephalogram, no paroxysmal activities. No focal ____ noted. MRI of the brain showed possible slit ventricle consistent with idiopathic intracranial hypertension (pseudotumor cerebri). We will try with stat course of acetazolamide XL ____ 500 mg twice a day to see her responses. If clinically failed, at that point maybe she can consider DIRECT RESPONSE CONSULTANT shunt. The patient is noncompliant with existing sleep apnea. The patient should have a polysomnogram. This should be appropriately treated with correct pressure. The patient's condition ____ discussed. In the meantime, I discussed about her reduction of her weight. The patient will be followed closely while she is in the hospital. When medically stable, the patient can be discharged and should have followup. Edson Nguyen MD
== END 2018-01-15 14:27 | disposition home or self-care (01) ==
LOC: C.ER 17:05 → C.9E 21:08 → C.6T 23:43
PROVIDERS: ADMIT Internal Medicine; ATTEND Internal Medicine
DX: R42 Dizziness and giddiness (principal); G43.109 Migraine with aura, not intractable, without status migrainosus; H81.10 Benign paroxysmal vertigo, unspecified ear; G47.33 Obstructive sleep apnea (adult) (pediatric); E11.9 Type 2 diabetes mellitus without complications; I10 Essential (primary) hypertension; E78.5 Hyperlipidemia, unspecified; E66.9 Obesity, unspecified; J45.909 Unspecified asthma, uncomplicated; Z79.82 Long term (current) use of aspirin; Z91.19 Patient's noncompliance with other medical treatment and regimen
CPT/HCPCS: 36415; 70450; 70551; 71046; 80053; 80061; 81001; 82607; 82746; 83036; 83090; 83735; 84439; 84443; 84484; 84703; 85025; 85651; 86038; 93005; 93306; 93880; 94660; 95812; 96360; 99285; G0378; J7030